=== PATIENT | male | born 1985 | race African-American/Black ===

== ENCOUNTER 2022-09-16 19:33 | Emergency (ER) | payer MEDICAID, MEDICARE ==
[~2022-09-16] VITALS: Ht 180.3 cm; Wt 112.8 kg
[2022-09-16 19:53] VITALS: BP 118/74
[2022-09-16] MEDS ORDERED: CYCLOBENZAPRINE 10MG TABLET PO ONE (23:15)
[2022-09-16] MEDS ORDERED: LIDOCAINE 5% PATCH TOP SCH (23:15)
[2022-09-16] MEDS ORDERED: KETOROLAC 30MG/ML VIAL IM ONE (23:15)
[2022-09-17] MEDS ORDERED: NAPR-681 MT (00:40)
[2022-09-17] MEDS ORDERED: LIDO700A15 TP (00:40)
== END 2022-09-17 01:04 | disposition home or self-care (01) ==
LOC: ER 19:33
DX: M54.50 Low back pain, unspecified (principal); G89.29 Other chronic pain; M79.672 Pain in left foot
CPT/HCPCS: 73630; 96372; 99283; J1885